=== PATIENT | male | born 1980 | race Two or more races ===

== ENCOUNTER 2017-02-06 23:07 | Emergency (ER) | payer MEDICAID ==
[~2017-02-06] VITALS: Ht 180.3 cm; Wt 104.3 kg
[2017-02-06 23:29] VITALS: BP 148/88
== END 2017-02-07 02:36 | disposition left against medical advice (07) ==
LOC: ER 23:11
DX: R51 Headache (principal); Z53.21 Procedure and treatment not carried out due to patient leaving prior to being seen by health care provider

== ENCOUNTER 2017-02-07 07:28 | Emergency (ER) | payer MEDICAID ==
[~2017-02-07] VITALS: Ht 180.3 cm; Wt 106.6 kg
[2017-02-07 07:49] VITALS: BP 96/72
== END 2017-02-07 08:29 | disposition home or self-care (01) ==
LOC: ER 07:28
DX: L23.9 Allergic contact dermatitis, unspecified cause (principal)